=== PATIENT | female | born 1980 | race Caucasian/White ===

== ENCOUNTER 2023-01-05 06:50 | Day surgery (SDC) | payer OTHER ==
[2023-01-02 09:54] VITALS: BMI 30.2
[2023-01-05] MEDS ORDERED: Midazolam HCl 2 mg/2 ml Vial ONE (07:56)
[2023-01-05] MEDS ORDERED: Famotidine/PF 20 mg/2ml Vial ONE (07:56)
[2023-01-05 08:06] LABS: Hemoglobin 10.7 g/dL (12.0-16.0); Mean Corpuscular Volume 73.6 fl (78.0-98.0); White Blood Cell (WBC) Count 9.8 10x3/uL (4.8-10.8)
[2023-01-05 08:24] LABS: Anion Gap 13 mmol/L (10-20); BUN (Urea Nitrogen) 10 mg/dL (7.0-18.7); Calc. Creatinine Clearance 106 mL/min (70-130); Calcium 8.9 mg/dL (7.8-10.44); Carbon Dioxide 19 mmol/L (22-29); Chloride 108 mmol/L (98-107); Estimated GFR 96; Glucose 94 mg/dL (70-105); Potassium 4.1 mmol/L (3.5-5.1); Sodium 136 mmol/L (136-145)
[2023-01-05 08:45] LABS: #Eosinphils 0.5 thou/uL (0.0-0.7); #Lymphocytes 2.1 thou/uL (1.20-3.40); #Monocytes 0.6 thou/uL (0.11-0.59); #Neutrophils 6.6 thou/uL (1.40-6.50); %Basophils 0.4 % (0.0-1.0); %Eosinophils 4.8 % (0.0-10.0); %Monocytes 6.4 % (0.0-10.0); %Neutrophils 67.3 % (42.0-75.0); Elliptocytes SLIGHT = 2-5 cells (100X) (0-1/hpf); MDiff Complete? YES; Mean Corpuscular HGB CONC 33.1 g/dL (32.0-36.0); Mean Corpuscular Hemoglobin 24.4 pg (27.0-31.0); Mean Platelet Volume 7.8 fL (7.4-10.4); Microcytosis SLIGHT = 6-15 cells (100X) (0-5/hpf); Platelet Count 365 10x3/uL (130-400); Platelet Morphology Comment Appears Adequate; RBC Distribution Width 13.3 % (11.5-14.5)
[2023-01-05] MEDS ORDERED: Vancomycin 1 GM VIAL ONE (08:55)
[2023-01-05] MEDS ORDERED: CEFAZOLIN 2 GM VIAL ONE (09:03)
[2023-01-05] MEDS ORDERED: Sodium Chloride 0.9% 100 ML ONE (09:03)
[2023-01-05] MEDS ORDERED: Fentanyl 250 MCG/5 ML VIAL ONE (09:05)
[2023-01-05] MEDS ORDERED: Lidocaine 1% PF 5 ML VIAL ONE (09:15)
[2023-01-05] MEDS ORDERED: Glycopyrrolate 0.2 MG/ML 5 ML SYRINGE ONE (09:15)
[2023-01-05] MEDS ORDERED: Ketorolac Tromethamine 30 MG/ML VIAL ONE (09:15)
[2023-01-05] MEDS ORDERED: PROPOFOL 200 MG/20 ML VIAL ONE (09:15)
[2023-01-05] MEDS ORDERED: NEOSTIGMINE 3 MG/3 ML SYR 3 MG/3 ML SYRINGE ONE (09:15)
[2023-01-05] MEDS ORDERED: Dexamethasone 20 MG/5 ML VIAL ONE (09:15)
[2023-01-05] MEDS ORDERED: Rocuronium Bromide 10 MG/ML (10ML VIAL) ONE (09:15)
[2023-01-05] MEDS ORDERED: Ondansetron PF 4 MG/2 ML Vial ONE (09:15)
[2023-01-05] MEDS ORDERED: HYDROmorphone 2 MG/ML VIAL SLOW IVP PRN (10:17)
[2023-01-05] MEDS ORDERED: Ondansetron HCl/PF 4 MG/2 ML Vial IVP PRN (10:17)
[2023-01-05] MEDS ORDERED: PACU-Morphine 4MG/ML VIAL SLOW IVP PRN (10:17)
[2023-01-05] MEDS ORDERED: Promethazine HCl 25 MG/ML VIAL IM PRN (10:17)
[2023-01-05] MEDS ORDERED: Morphine Sulfate 2 MG/ML SYRINGE SLOW IVP PRN (10:17)
[2023-01-05] MEDS ORDERED: fentaNYL PF 100 MCG/2 ML SYRINGE ONE (11:04)
[2023-01-05] MEDS ORDERED: HYDROcodone/Acetaminophen 5/325 mg Tablet ONE (13:19)
== END 2023-01-05 13:35 | disposition home or self-care (01) ==
LOC: SDC 06:50
PROVIDERS: ATTEND Neurological Surgery
PROC: 0SG0071 Fusion of Lumbar Vertebral Joint with Autologous Tissue Substitute, Posterior Approach, Posterior Column, Open Approach (ICD-10-PCS; principal; 2023-01-05)
PROC: 01NB0ZZ Release Lumbar Nerve, Open Approach (ICD-10-PCS; principal; 2023-01-05)
DX: M51.16 Intervertebral disc disorders with radiculopathy, lumbar region (principal); G47.30 Sleep apnea, unspecified; F17.290 Nicotine dependence, other tobacco product, uncomplicated; Z79.899 Other long term (current) drug therapy
CPT/HCPCS: 80048; 85025; 93005; 93010; C1713; C1768; C1776; C1889; J2250; J3010; J3370; J3490; S0028

== ENCOUNTER 2023-01-07 12:17 | Outpatient (CLI) | payer OTHER | END 2023-01-07 12:18 | disposition home or self-care (01) | LOC: CT 12:17 | PROVIDERS: ATTEND Neurological Surgery | DX: M54.16 Radiculopathy, lumbar region (principal); R20.0 Anesthesia of skin; N85.2 Hypertrophy of uterus; Z98.890 Other specified postprocedural states | CPT/HCPCS: 72131 ==

== ENCOUNTER 2023-01-10 09:50 | Emergency (ER) | payer OTHER ==
[2023-01-10] MEDS ORDERED: Lidocaine 1% w/Epinephrine 1:100K 20 ML VIAL ONE (11:29)
[2023-01-10] MEDS ORDERED: Morphine 4 MG/ML VIAL ONE (11:29)
== END 2023-01-10 13:30 | disposition home or self-care (01) ==
LOC: ERS 09:50
DX: G96.02 Spinal cerebrospinal fluid leak, spontaneous (principal); F17.290 Nicotine dependence, other tobacco product, uncomplicated
CPT/HCPCS: 99283; J2270

== ENCOUNTER 2023-01-11 12:04 | Inpatient (IN) | payer OTHER ==
[2023-01-11] MEDS ORDERED: Acetaminophen 325 MG TAB PO PRN (13:23)
[2023-01-11] MEDS ORDERED: HYDROcodone/Acetaminophen 7.5/325 mg Tablet PO PRN (13:28)
[2023-01-11] MEDS: Sodium Chloride 0.9% 1,000 ML IV SCH ×2 (15:50→15:51)
[2023-01-11] MEDS: CEFAZOLIN 2 GM in Sodium Chloride 0.9% 100 ML IVPB SCH (20:58)
[2023-01-11] MEDS: HYDROcodone/Acetaminophen 7.5/325 mg Tablet PO PRN (22:39)
[2023-01-11] MEDS: tiZANidine HCl 4 MG TAB PO PRN (22:40)
[2023-01-12] MEDS: Sodium Chloride 0.9% 1,000 ML IV SCH ×3 (03:09→23:00)
[2023-01-12 07:52] LABS: #Eosinphils 0.1 thou/uL (0.0-0.7); #Lymphocytes 1.3 thou/uL (1.20-3.40); #Monocytes 0.5 thou/uL (0.11-0.59); #Neutrophils 4.5 thou/uL (1.40-6.50); %Basophils 0.2 % (0.0-1.0); %Eosinophils 1.5 % (0.0-10.0); %Lymphocytes 19.6 % (21.0-51.0); %Monocytes 8.5 % (0.0-10.0); %Neutrophils 70.2 % (42.0-75.0); Hemoglobin 9.9 g/dL (12.0-16.0); Mean Corpuscular HGB CONC 32.2 g/dL (32.0-36.0); Mean Corpuscular Hemoglobin 24.2 pg (27.0-31.0); Mean Corpuscular Volume 75.3 fl (78.0-98.0); Mean Platelet Volume 7.8 fL (7.4-10.4); Platelet Count 344 10x3/uL (130-400); RBC Distribution Width 13.9 % (11.5-14.5); Red Blood Cell (RBC) Count 4.09 mill/uL (4.20-5.40); White Blood Cell (WBC) Count 6.4 10x3/uL (4.8-10.8)
[2023-01-12 08:06] LABS: Anion Gap 13 mmol/L (10-20); BUN (Urea Nitrogen) 14 mg/dL (7.0-18.7); Calc. Creatinine Clearance 115 mL/min (70-130); Calcium 8.8 mg/dL (7.8-10.44); Carbon Dioxide 25 mmol/L (22-29); Chloride 105 mmol/L (98-107); Estimated GFR 105; Glucose 82 mg/dL (70-105); Potassium 4.3 mmol/L (3.5-5.1); Sodium 139 mmol/L (136-145)
[2023-01-12] MEDS ORDERED: CEFAZOLIN 2 GM in Sodium Chloride 0.9% 100 ML IVPB SCH (09:00)
[2023-01-12] MEDS ORDERED: fentaNYL PF 100 MCG/2 ML SYRINGE ONE (09:44)
[2023-01-12] MEDS ORDERED: Midazolam HCl 2 mg/2 ml Vial ONE (09:44)
[2023-01-12] MEDS ORDERED: HYDROmorphone 0.5 MG/0.5 ML SYRINGE ONE ×3 (09:44→14:07)
[2023-01-12] MEDS ORDERED: CEFAZOLIN 2 GM VIAL ONE (10:31)
[2023-01-12] MEDS ORDERED: Sodium Chloride 0.9% 100 ML ONE (10:31)
[2023-01-12] MEDS ORDERED: Lidocaine 1% PF 5 ML VIAL ONE (10:41)
[2023-01-12] MEDS ORDERED: Ondansetron PF 4 MG/2 ML Vial ONE (10:41)
[2023-01-12] MEDS ORDERED: PROPOFOL 200 MG/20 ML VIAL ONE (10:41)
[2023-01-12] MEDS ORDERED: Rocuronium Bromide 10 MG/ML (10ML VIAL) ONE (10:41)
[2023-01-12] MEDS ORDERED: Dexamethasone 20 MG/5 ML VIAL ONE (10:41)
[2023-01-12] MEDS: CEFAZOLIN 2 GM in Sodium Chloride 0.9% 100 ML IVPB SCH ×2 (11:22→17:09)
[2023-01-12] MEDS ORDERED: Promethazine HCl 25 MG/ML VIAL IM PRN (11:23)
[2023-01-12] MEDS ORDERED: Ondansetron HCl/PF 4 MG/2 ML Vial IVP PRN (11:23)
[2023-01-12] MEDS ORDERED: HYDROmorphone 2 MG/ML VIAL SLOW IVP PRN (11:23)
[2023-01-12] MEDS ORDERED: Vancomycin 1 GM VIAL ONE (11:23)
[2023-01-12] MEDS ORDERED: Meperidine HCl/PF 25 MG/ML VIAL SLOW IVP PRN (11:23)
[2023-01-12] MEDS ORDERED: SUGAMMADEX SODIUM 200 MG/2 ML VIAL ONE (11:41)
[2023-01-12] MEDS ORDERED: fentaNYL 50 mcg/mL 1 mL Vial ONE ×2 (12:37→12:55)
[2023-01-12] MEDS: HYDROcodone/Acetaminophen 7.5/325 mg Tablet PO PRN ×2 (16:35→21:04)
[2023-01-12] MEDS: Gabapentin 300 MG CAP PO SCH ×2 (16:36→21:07)
[2023-01-12] MEDS: tiZANidine HCl 4 MG TAB PO PRN ×2 (16:39→22:45)
[2023-01-12] MEDS: diphenhydrAMINE 50 MG/ML VIAL IVP PRN (21:09)
[2023-01-12] MEDS: Cephalexin 250 MG CAP PO SCH (21:12)
[2023-01-12] MEDS ORDERED: Electrolyte Replacement Protocol 1 EACH FS SCH (22:00)
[2023-01-13] MEDS: CEFAZOLIN 2 GM in Sodium Chloride 0.9% 100 ML IVPB SCH ×2 (02:09→10:04)
[2023-01-13] MEDS: diphenhydrAMINE 50 MG/ML VIAL IVP PRN ×3 (03:48→14:50)
[2023-01-13 04:15] LABS: #Eosinphils 0.1 thou/uL (0.0-0.7); #Lymphocytes 1.8 thou/uL (1.20-3.40); #Monocytes 0.4 thou/uL (0.11-0.59); #Neutrophils 4.8 thou/uL (1.40-6.50); %Basophils 0.2 % (0.0-1.0); %Eosinophils 1.3 % (0.0-10.0); %Lymphocytes 24.6 % (21.0-51.0); %Neutrophils 67.9 % (42.0-75.0); Hemoglobin 9.9 g/dL (12.0-16.0); Mean Corpuscular HGB CONC 32.3 g/dL (32.0-36.0); Mean Corpuscular Hemoglobin 24.1 pg (27.0-31.0); Mean Corpuscular Volume 74.7 fl (78.0-98.0); Mean Platelet Volume 8.1 fL (7.4-10.4); Platelet Count 310 10x3/uL (130-400); RBC Distribution Width 13.8 % (11.5-14.5); Red Blood Cell (RBC) Count 4.12 mill/uL (4.20-5.40); White Blood Cell (WBC) Count 7.1 10x3/uL (4.8-10.8)
[2023-01-13 04:25] LABS: Anion Gap 13 mmol/L (10-20); BUN (Urea Nitrogen) 10 mg/dL (7.0-18.7); Calc. Creatinine Clearance 115 mL/min (70-130); Calcium 8.2 mg/dL (7.8-10.44); Carbon Dioxide 21 mmol/L (22-29); Chloride 106 mmol/L (98-107); Estimated GFR 105; Glucose 89 mg/dL (70-105); Potassium 4.4 mmol/L (3.5-5.1); Sodium 136 mmol/L (136-145)
[2023-01-13] MEDS: Morphine 2 MG/ML VIAL SLOW IVP PRN ×3 (07:05→20:40)
[2023-01-13] MEDS: tiZANidine HCl 4 MG TAB PO PRN (07:05)
[2023-01-13] MEDS: Gabapentin 300 MG CAP PO SCH ×4 (08:02→20:38)
[2023-01-13] MEDS: HYDROcodone/Acetaminophen 10/325 mg Tablet PO PRN ×3 (08:03→20:38)
[2023-01-13] MEDS: Cephalexin 250 MG CAP PO SCH ×2 (08:43→11:57)
[2023-01-13] MEDS: Diazepam 5 MG TAB PO PRN (09:19)
[2023-01-13] MEDS: Sodium Chloride 0.9% 1,000 ML IV SCH ×2 (10:10→16:33)
[2023-01-13] MEDS: diphenhydrAMINE 30 GM TUBE TOP PRN (16:28)
[2023-01-13] MEDS: Clindamycin/D5W 900 MG in Premix Bag 1 BAG IVPB SCH (16:28)
[2023-01-14] MEDS: Clindamycin/D5W 900 MG in Premix Bag 1 BAG IVPB SCH ×3 (01:26→17:10)
[2023-01-14] MEDS: Sodium Chloride 0.9% 1,000 ML IV SCH ×2 (01:27→12:38)
[2023-01-14] MEDS: HYDROcodone/Acetaminophen 10/325 mg Tablet PO PRN ×4 (01:30→18:57)
[2023-01-14] MEDS: Diazepam 5 MG TAB PO PRN (08:58)
[2023-01-14] MEDS: Gabapentin 300 MG CAP PO SCH ×3 (08:59→20:36)
[2023-01-14] MEDS: diphenhydrAMINE 30 GM TUBE TOP PRN (09:01)
[2023-01-14] MEDS: tiZANidine HCl 4 MG TAB PO PRN ×2 (13:10→18:57)
[2023-01-15] MEDS: Clindamycin/D5W 900 MG in Premix Bag 1 BAG IVPB SCH ×3 (00:23→16:56)
[2023-01-15] MEDS: HYDROcodone/Acetaminophen 10/325 mg Tablet PO PRN ×4 (00:40→16:34)
[2023-01-15] MEDS: Sodium Chloride 0.9% 1,000 ML IV SCH ×2 (04:14→18:48)
[2023-01-15 05:24] VITALS: BMI 31.4
[2023-01-15] MEDS ORDERED: Polyethylene Glycol 3350 17 GM Packet PO PRN (08:28)
[2023-01-15] MEDS ORDERED: Docusate Sodium 100 MG/10 ML UDCUP PO PRN (08:28)
[2023-01-15] MEDS: Gabapentin 300 MG CAP PO SCH ×3 (09:15→21:43)
[2023-01-15] MEDS: Ondansetron PF 4 MG/2 ML Vial IVP PRN ×2 (16:35→22:38)
[2023-01-15] MEDS ORDERED: Lidocaine 2% Viscous Solution 20 ML, Aluminum & Magnesium Hydroxide 30 ML, Donnatal Eli... SSW SCH (21:30)
[2023-01-16] MEDS: Clindamycin/D5W 900 MG in Premix Bag 1 BAG IVPB SCH ×3 (00:11→16:37)
[2023-01-16] MEDS: Sodium Chloride 0.9% 1,000 ML IV SCH ×2 (06:05→18:31)
[2023-01-16] MEDS ORDERED: Milk Of Magnesia 30 ML UDCUP PO PRN (08:16)
[2023-01-16] MEDS ORDERED: Mineral Oil ENEMA PR PRN (08:17)
[2023-01-16] MEDS ORDERED: Polyethylene Glycol 3350 17 GM Packet PO PRN (08:18)
[2023-01-16] MEDS ORDERED: Calcium Carbonate 500 MG ChewTAB PO PRN (08:18)
[2023-01-16] MEDS: Gabapentin 300 MG CAP PO SCH ×3 (09:53→20:18)
[2023-01-16] MEDS: Famotidine/PF 20 mg/2ml Vial SLOW IVP SCH ×2 (09:54→20:19)
[2023-01-16] MEDS: Pantoprazole 40 MG VIAL IVP SCH (11:37)
[2023-01-16] MEDS: HYDROcodone/Acetaminophen 10/325 mg Tablet PO PRN (20:18)
[2023-01-17] MEDS: Clindamycin/D5W 900 MG in Premix Bag 1 BAG IVPB SCH ×3 (00:06→16:23)
[2023-01-17] MEDS: Gabapentin 300 MG CAP PO SCH ×3 (08:03→20:18)
[2023-01-17] MEDS: Famotidine/PF 20 mg/2ml Vial SLOW IVP SCH ×2 (08:03→20:19)
[2023-01-17] MEDS: Pantoprazole 40 MG VIAL IVP SCH (08:03)
[2023-01-17] MEDS: HYDROcodone/Acetaminophen 10/325 mg Tablet PO PRN ×2 (08:04→20:17)
[2023-01-17] MEDS: Sodium Chloride 0.9% 1,000 ML IV SCH ×2 (08:08→22:58)
[2023-01-17] MEDS: tiZANidine HCl 4 MG TAB PO PRN (22:52)
[2023-01-18] MEDS: Clindamycin/D5W 900 MG in Premix Bag 1 BAG IVPB SCH ×3 (01:05→15:26)
[2023-01-18 06:17] VITALS: BP 124/71
[2023-01-18] MEDS: HYDROcodone/Acetaminophen 10/325 mg Tablet PO PRN ×3 (08:37→21:06)
[2023-01-18] MEDS: Gabapentin 300 MG CAP PO SCH ×3 (08:38→21:06)
[2023-01-18] MEDS: Pantoprazole 40 MG VIAL IVP SCH (08:39)
[2023-01-18] MEDS: Famotidine/PF 20 mg/2ml Vial SLOW IVP SCH ×2 (08:39→21:06)
[2023-01-18] MEDS: Sodium Chloride 0.9% 1,000 ML IV SCH (14:42)
[2023-01-18] MEDS ORDERED: Lidocaine 1% (PF) 30 ML VIAL FS SCH (14:45)
[2023-01-18] MEDS: CLINDAMYCIN IVPB SCH (18:26)
[2023-01-18] MEDS: ADMIXTURE FEE IVPB SCH (18:26)
[2023-01-18] MEDS: D5W IVPB SCH (18:26)
[2023-01-19] MEDS: CLINDAMYCIN IVPB SCH ×2 (00:24→09:27)
[2023-01-19] MEDS: D5W IVPB SCH ×2 (00:24→09:27)
[2023-01-19] MEDS: ADMIXTURE FEE IVPB SCH ×2 (00:24→09:27)
[2023-01-19] MEDS: Sodium Chloride 0.9% 1,000 ML IV SCH (00:25)
[2023-01-19 08:04] VITALS: TEMP 98.1
[2023-01-19] MEDS: Gabapentin 300 MG CAP PO SCH (09:27)
[2023-01-19] MEDS: Famotidine/PF 20 mg/2ml Vial SLOW IVP SCH (09:27)
[2023-01-19] MEDS: Pantoprazole 40 MG VIAL IVP SCH (09:28)
== END 2023-01-19 12:02 | disposition home or self-care (01) | DRG 30 ==
LOC: ERS 12:04 → SURG B 15:30 → CCU 01-12 16:15 → IMCU/EMU 01-13 09:30
PROVIDERS: ADMIT Neurological Surgery; ATTEND Neurological Surgery
PROC: 00QT0ZZ Repair Spinal Meninges, Open Approach (ICD-10-PCS; principal; 2023-01-12)
PROC: 0SP004Z Removal of Internal Fixation Device from Lumbar Vertebral Joint, Open Approach (ICD-10-PCS; 2023-01-12)
PROC: 0SG0071 Fusion of Lumbar Vertebral Joint with Autologous Tissue Substitute, Posterior Approach, Posterior Column, Open Approach (ICD-10-PCS; 2023-01-12)
PROC: 3E0U0GB Introduction of Recombinant Bone Morphogenetic Protein into Joints, Open Approach (ICD-10-PCS; 2023-01-12)
DX: G96.09 Other spinal cerebrospinal fluid leak (principal); Y83.8 Other surgical procedures as the cause of abnormal reaction of the patient, or of later complication, without mention of misadventure at the time of the procedure; F41.9 Anxiety disorder, unspecified; Z90.49 Acquired absence of other specified parts of digestive tract; I10 Essential (primary) hypertension; Z82.49 Family history of ischemic heart disease and other diseases of the circulatory system; F17.210 Nicotine dependence, cigarettes, uncomplicated; Z79.899 Other long term (current) drug therapy; D64.9 Anemia, unspecified; Z88.8 Allergy status to other drugs, medicaments and biological substances
CPT/HCPCS: 36415; 80048; 85025; 99283; 99284; C1713; C1889; C9113; J1100; J1170; J1200; J2250; J2270; J2272; J2405; J2704; J3010; J3370; J3490; J7050; S0028